=== PATIENT | female | born 1940 | race Caucasian/White ===

== ENCOUNTER 2017-08-28 13:45 | Inpatient (IN) | payer MEDICARE ==
[2017-08-28] MEDS: METOPROLOL TARTRATE 5 MG/5 ML VIAL. IVP (14:15)
[2017-08-28] MEDS ORDERED: fentaNYL PF VIAL 100 MCG/2 ML VIAL IV (14:15)
[2017-08-28 14:31] LABS: ADD MAN DIFF? NO
[2017-08-28 14:35] LABS: BASO % 1 % (0-3); EOS % 1 % (0-3); HEMATOCRIT 41.9 % (36.0-47.0); LYMPH # 1.5 x10^3/uL (1.0-4.8); LYMPH % 27 % (24-48); MEAN CORPUSCULAR HEMOGLOBIN 32 pg (25-35); MEAN CORPUSCULAR HGB CONC 34 g/dL (31-37); MEAN CORPUSCULAR VOLUME 95 fL (79-100); MONO # 0.5 x10^3/uL (0.0-1.1); MONO % 9 % (0-9); NEUT # 3.6 x10^3uL (1.8-7.7); NEUT % 63 % (31-73); PLATELET COUNT 204 x10^3/uL (140-400); RED CELL DISTRIBUTION WIDTH 13.9 % (11.5-14.5); WHITE BLOOD COUNT 5.8 x10^3/uL (4.0-11.0)
[2017-08-28] MEDS: ASPIRIN CHEWABLE 81 MG TABLET. PO (14:44)
[2017-08-28] MEDS: IV NORMAL SALINE 1000ML BAG 1,000 ML IV (14:45)
[2017-08-28 14:48] LABS: ANION GAP 14 (6-14); BLOOD UREA NITROGEN 26 mg/dL (7-20); BUN/CREATININE RATIO 29 (6-20); CALCIUM 10.1 mg/dL (8.5-10.1); CARBON DIOXIDE 23 mmol/L (21-32); CHLORIDE 108 mmol/L (98-107); CREATININE 0.9 mg/dL (0.6-1.0); GFR 60.9; GLUCOSE 90 mg/dL (70-99); POTASSIUM 4.7 mmol/L (3.5-5.1); SODIUM 145 mmol/L (136-145)
[2017-08-28 14:54] LABS: ALBUMIN 3.7 g/dL (3.4-5.0); ALK PHOS 60 U/L (46-116); ALT (SGPT) 17 U/L (14-59); AST (SGOT) 20 U/L (15-37); MAGNESIUM 2.2 mg/dL (1.8-2.4); TOTAL BILIRUBIN 0.4 mg/dL (0.2-1.0); TOTAL PROTEIN 7.4 g/dL (6.4-8.2)
[2017-08-28 14:58] LABS: TROPONINI 0.099 ng/mL (0.000-0.055)
[2017-08-28 15:02] LABS: CKMB INDEX 1.4 % (0-4); CKMB MASS 1.2 ng/mL (0.0-3.6); CREATINE KINASE 84 U/L (26-192)
[2017-08-28 15:02] LABS: NT-PRO BNP 564 pg/mL (0-449)
[2017-08-28 16:27] LABS: THYROID STIM HORMONE (TSH) 2.178 uIU/mL (0.358-3.74)
[2017-08-28] MEDS ORDERED: IV NORMAL SALINE 1000ML BAG 1,000 ML IV (16:49)
[2017-08-28] MEDS ORDERED: ONDANSETRON PF 4 MG/2 ML VIAL. IV (17:00)
[2017-08-28 19:38] LABS: TROPONINI 0.356 ng/mL (0.000-0.055)
[2017-08-28] MEDS: ASPIRIN ENTERIC COATED 81 MG TABLET.DR. PO (21:00)
[2017-08-28] MEDS: MELOXICAM 7.5 MG TABLET PO (21:28)
[2017-08-28] MEDS: ATORVASTATIN CALCIUM 20 MG TABLET PO (21:28)
[2017-08-28] MEDS: METOPROLOL TART IMMED RELEASE 25 MG TABLET. PO (21:28)
[2017-08-28 22:08] LABS: BILIRUBIN,URINE NEGATIVE (NEG); CLARITY,URINE CLEAR; COLOR,URINE YELLOW; GLUCOSE,URINE NEGATIVE (NEG); NITRITE,URINE NEGATIVE (NEG); PH,URINE 7.5; PROTEIN,URINE NEGATIVE (NEG-TRACE); UROBILINOGEN,URINE 0.2 mg/dL (0.2 mg/dL)
[2017-08-28 22:14] LABS: BACTERIA,URINE 0 /HPF (0-FEW); RBC,URINE 0 /HPF (0-2); WBC,URINE OCC /HPF (0-4)
[2017-08-28 22:15] LABS: SQUAMOUS EPITHELIAL CELL,UR FEW /LPF
[2017-08-28 23:30] LABS: TROPONINI 0.482 ng/mL (0.000-0.055)
[2017-08-29 05:07] LABS: ADD MAN DIFF? NO
[2017-08-29 05:17] LABS: BASO % 1 % (0-3); EOS # 0.1 x10^3/uL (0.0-0.7); EOS % 2 % (0-3); HEMATOCRIT 35.6 % (36.0-47.0); HEMOGLOBIN 11.8 g/dL (12.0-15.5); LYMPH # 2.1 x10^3/uL (1.0-4.8); LYMPH % 39 % (24-48); MEAN CORPUSCULAR HEMOGLOBIN 32 pg (25-35); MEAN CORPUSCULAR HGB CONC 33 g/dL (31-37); MEAN CORPUSCULAR VOLUME 96 fL (79-100); MONO # 0.4 x10^3/uL (0.0-1.1); MONO % 8 % (0-9); NEUT # 2.7 x10^3uL (1.8-7.7); NEUT % 51 % (31-73); PLATELET COUNT 163 x10^3/uL (140-400); RED BLOOD COUNT 3.71 x10^6/uL (3.50-5.40); RED CELL DISTRIBUTION WIDTH 13.4 % (11.5-14.5); WHITE BLOOD COUNT 5.4 x10^3/uL (4.0-11.0)
[2017-08-29 05:44] LABS: ANION GAP 9 (6-14); BLOOD UREA NITROGEN 17 mg/dL (7-20); CALCIUM 8.6 mg/dL (8.5-10.1); CARBON DIOXIDE 25 mmol/L (21-32); CHLORIDE 109 mmol/L (98-107); CHOLESTEROL 118 mg/dL (0-200); CREATININE 0.8 mg/dL (0.6-1.0); GFR 69.7; GLUCOSE 87 mg/dL (70-99); HDLC 59 mg/dL (40-60); LDLC 50 mg/dL (0-100); NON-HDL CHOLESTEROL 59 mg/dL (0-129); POTASSIUM 4.1 mmol/L (3.5-5.1); SODIUM 143 mmol/L (136-145); TRIGLYCERIDES 44 mg/dL (0-150); VLDLC 9 mg/dL (0-40)
[2017-08-29] MEDS ORDERED: ASPIRIN ENTERIC COATED 325 MG TABLET.DR. PO (08:00)
[2017-08-29] MEDS: METOPROLOL TART IMMED RELEASE 25 MG TABLET. PO (09:36)
[2017-08-29 11:33] LABS: TROPONINI 0.508 ng/mL (0.000-0.055)
[2017-08-29 13:09] LABS: TROPONINI 0.493 ng/mL (0.000-0.055)
== END 2017-08-29 19:00 | disposition home or self-care (01) | DRG 309 ==
LOC: ER 13:45 → 2 SOUTH 15:40
DX: I48.92 Unspecified atrial flutter (principal); I24.8 Other forms of acute ischemic heart disease; E78.00 Pure hypercholesterolemia, unspecified; I47.1 Supraventricular tachycardia; I48.91 Unspecified atrial fibrillation; E78.5 Hyperlipidemia, unspecified; I10 Essential (primary) hypertension; M19.90 Unspecified osteoarthritis, unspecified site; Z82.49 Family history of ischemic heart disease and other diseases of the circulatory system; Z90.710 Acquired absence of both cervix and uterus; Z88.2 Allergy status to sulfonamides
CPT/HCPCS: 36415; 71045; 80048; 80053; 80061; 81001; 82553; 83735; 83880; 84443; 84484; 85025; 87086; 93005; 93306; J1650; J7030

== ENCOUNTER 2021-08-06 00:49 | Emergency (ER) | payer MEDICARE ==
[~2021-08-06] VITALS: Ht 162.6 cm; Wt 65.9 kg
[~2021-08-06 00:49] MED LIST: ASPI-482 PO; ATOR20TA PO; MELO15TA23 PO; MELO7.5T29 PO; METO25TA4 PO
--- NOTE | 2021-08-06 00:53 | PHYS DOC ---
Past Medical History Past Medical History: A-Fib, Arthritis, High Cholesterol, Hypertension Past Surgical History: Hysterectomy, Other Additional Past Surgical Histo: lumpectomy R breast Smoking Status: Never Smoker Alcohol Use: None Drug Use: None General Adult EDM: Chief Complaint: RAPID HEART RATE HPI: HPI: Patient is a 81 year old female who presents with multiple complaints. She reports that she thinks she might be in atrial fibrillation. She reports feeling like her heart is racing, she reports mild shortness of breath. Symptoms began at home a few hours prior to arrival. She reports that symptoms woke her from sleep. She reports that she and her have both been "sick with cough and fever" for the past 24 hours. No productive cough, no hemoptysis. She denies chest pain. She denies exertional dyspnea, PND orthopnea symptoms. She denies lower extremity pain or swelling. She denies syncope or near syncope. She denies urinary symptoms. She denies abdominal pain, nausea, vomiting, diarrhea. Has a history of what sounds like paroxysmal atrial fibrillation. She reports that she takes diltiazem. She is not taking anticoagulants. She does not routinely see a felt pad cutter and has not done so in several years. She reports that she and her recently traveled to [place] to visit with family. The patient reports being fully vaccinated against COVID-19, including booster, she has had a flu shot as well. Review of Systems: Review of Systems: Constitutional: Fever and chills Eyes: Denies change in visual acuity. Denies vision loss. HENT: Denies nasal congestion or sore throat. [] Respiratory: Mild, dry cough. Mild shortness of breath. No PND, orthopnea or dyspnea on exertion Cardiovascular: Denies chest pain or edema. [] GI: Denies abdominal pain, nausea, vomiting, or diarrhea : Denies urinary symptoms. Musculoskeletal: Denies back pain or joint pain. [] Integument: Denies rash. [] Neurologic: Denies headache, focal weakness or sensory changes. Reports mild dizziness with abrupt standing. Denies vertigo symptoms. Denies fall, head injury, numbness, tingling, motor weakness. Psychiatric: Anxiety as it pertains to current clinical condition. Heart Score: C/O Chest Pain: No Risk Factors: Risk Factors: DM, Current or recent (<one month) smoker, HTN, HLP, family history of CAD, obesity. Risk Scores: Score 0 - 3: 2.5% MACE over next 6 weeks - Discharge Home Score 4 - 6: 20.3% MACE over next 6 weeks - Admit for Clinical Observation Score 7 - 10: 72.7% MACE over next 6 weeks - Early Invasive Strategies Allergies: Allergies: Allergies Coded Allergies Type Severity Reaction Last Updated Verified Sulfa (Sulfonamide Antibiotics) Allergy Mild HENDRICKS 08/28/17 Yes Physical Exam: PE: Constitutional: Well developed, well nourished, no acute distress, non-toxic appearance. Mildly anxious HENT: Normocephalic, atraumatic, oropharynx patent and clear, mucous membranes are moist Eyes: PERRL, EOMI, conjunctiva normal, no discharge. [] Neck: Normal range of motion, no tenderness, supple, no stridor. Trachea mid line. No JVD. Cardiovascular: Heart is regular rate and rhythm, +2 radial and +2 posterior tibial pulses bilaterally. Warm and well perfused. No cyanosis or edema. Lungs & Thorax: Lungs are clear to auscultation bilaterally, no rales, rhonchi or wheezes. Abdomen: Abdomen is soft, nondistended, nontender to palpation, no palpable mass organomegaly, no CVA tenderness, no flank abdominal ecchymoses. Skin: Warm, dry, no erythema, no rash. [] Back: No tenderness, no CVA tenderness. [] Extremities: No tenderness, no cyanosis, no clubbing, ROM intact, no edema. No calf tenderness. Neurologic: Alert and oriented X 3, normal motor function, normal sensory function, no focal deficits noted. Ambulatory with a steady gait. Psychologic: Affect is somewhat bizarre, she is pleasant cooperative EKG: EKG: EKG is interpreted at 0056 Rhythm is sinus tachycardia Rate is 103 bpm [place] is left artifact No STEMI EKG is interpreted at 0216 Rhythm is sinus Rate is 73 bpm No STEMI No acute ischemia Radiology/Procedures: Radiology/Procedures: IMAGING REPORT Signed PATIENT: PHIL RODARTE LACCOUNT: [id number] : 1940 LOCATION: ER AGE: 81 SEX: F EXAM STATUS: REG ER ORD. PHYSICIAN: TIBURCIO BRENNAN DO REASON: cough, fever PROCEDURE: PORTABLE CHEST 1V EXAM: XR CHEST 1V 08/06/2021 1:21 AM CLINICAL INDICATION: Cough, fever COMPARISON: Chest radiograph 08/28/2017 TECHNIQUE: AP upright view of the chest FINDINGS: The heart is normal in size. There are calcified left hilar lymph nodes and a calcified granuloma in the left lung base. The lungs are well- expanded. No consolidation, pleural effusion, or pneumothorax. Probable nipple shadow overlying the right lung base, unchanged. IMPRESSION: No acute cardiopulmonary abnormality. Electronically signed by: Macie Lewis MD (08/06/2021 2:01 AM) [facility] DICTATED and SIGNED BY: MACIE LEWIS MD DATE: 08/06/21 [id number] 0 Course & Med Decision Making: Course & Med Decision Making Pertinent Labs and Imaging studies reviewed. (See chart for details) The patient had one episode of dizziness here in the ER, but she was able to briskly get up from the bed, nearly lie down on the floor, stand up abruptly then lie back on the ED gurney. She had one episode of very brief hypotension that resolved without any intervention. She was given a liter of IV fluids. Heart rate has been in the 60s and 70s. She has evidence of sinus rhythm. No atrial fibrillation noted here in the ED. Very mild tachycardia that she had on arrival resolved rapidly. Serial troponin does not indicate any acute ischemia or myocardial damage. No acute ischemia on EKG. She reports no further dyspnea, never had any chest pain. Her dizziness symptoms resolved completely. She is afebrile here. Emergency department work-up is unremarkable for any acute life-threatening process. I discussed all of the findings, differential diagnosis and plan of care with her. I told her she should follow-up with not only her primary care physician but also with outpatient cardiology services. She has a history of atrial fibrillation, she is taking diltiazem, I told her to continue taking these medications, though she may require outpatient Holter monitoring if she continues to have recurrent symptoms. Strict return precautions are given. She verbalizes understanding. In addition, I told her that since she has had a cough and fever and recently was around multiple family members, it might be smalls for her to self isolate, perhaps retest for Covid in the next 3 to 5 days. She seems disappointed at these instructions, but I told her that it would be best to be safe. She verbalized understanding. Regulo Disclaimer: Regulo Disclaimer: This electronic medical record was generated, in whole or in part, using a voice recognition dictation system. Departure Departure Impression: Primary Impression: Palpitations Additional Impressions: Dizziness History of atrial fibrillation History of fever Disposition: HOME / SELF CARE / HOMELESS Condition: STABLE Referrals: SHA CANCHOLA MD (PCP) SAIDA THOMPSON MD, DONALD J MD PASNOORI,YEN Kelly MD Patient Instructions: Atrial Fibrillation, Dizziness, Palpitations Additional Instructions: Please return to the ER for chest pain, more severe shortness of breath, severe dizziness, passing out, focal weakness, uncontrolled vomiting, dehydration, abdominal pain, coughing up blood or any other concerns. Your rapid Covid test is negative here, but since it so early in onset of your symptoms, you may wish to retest in the next 3 to 5 days, but his Covid infection is still possible. Stay hydrated, drink plenty of fluids. Avoid any new strenuous activity. Please follow-up with your primary care physician and outpatient cardiology ser vices. You may need to wear a shelter monitor to see if you are having intermittent episodes of atrial fibrillation. TIBURCIO BRENNAN DO Aug 06, 2021 00:53
[2021-08-06 01:23] LABS: BASO % 0 % (0-3); EOS # 0.1 x10^3/uL (0.0-0.7); EOS % 1 % (0-3); HEMOGLOBIN 14.6 g/dL (12.0-15.5); LYMPH # 1.4 x10^3/uL (1.0-4.8); LYMPH % 17 % (24-48); MEAN CORPUSCULAR HEMOGLOBIN 31 pg (25-35); MEAN CORPUSCULAR HGB CONC 33 g/dL (31-37); MEAN CORPUSCULAR VOLUME 94 fL (79-100); MONO # 0.5 x10^3/uL (0.0-1.1); MONO % 6 % (0-9); NEUT # 6.4 x10^3/uL (1.8-7.7); NEUT % 76 % (31-73); PLATELET COUNT 211 x10^3/uL (140-400); RED BLOOD COUNT 4.69 x10^6/uL (3.50-5.40); RED CELL DISTRIBUTION WIDTH 15.3 % (11.5-14.5); WHITE BLOOD COUNT 8.5 x10^3/uL (4.0-11.0)
[2021-08-06 01:33] LABS: CALCIUM 9.1 mg/dL (8.5-10.1); GFR 53.3; POTASSIUM 4.1 mmol/L (3.5-5.1)
[2021-08-06 01:39] LABS: INFLUENZA A PATIENT NEGATIVE (NEGATIVE); INFLUENZA B PATIENT NEGATIVE (NEGATIVE)
--- NOTE | 2021-08-06 02:03 | RAD ---
EXAM: XR CHEST 1V 08/06/2021 1:21 AM CLINICAL INDICATION: Cough, fever COMPARISON: Chest radiograph 08/28/2017 TECHNIQUE: AP upright view of the chest FINDINGS: The heart is normal in size. There are calcified left hilar lymph nodes and a calcified gr anuloma in the left lung base. The lungs are well-expanded. No consolidation, pleural effusion, or pn eumothorax. Probable nipple shadow overlying the right lung base, unchanged. IMPRESSION: No acute cardiopulmonary abnormality. Electronically signed by: Macie Lewis MD (08/06/2021 2:01 AM) [facility]
[2021-08-06] MEDS ORDERED: IV NORMAL SALINE 1000ML BAG 1,000 ML IV ONE (02:30)
[2021-08-06 03:40] LABS: BILIRUBIN,URINE NEGATIVE (NEG); CLARITY,URINE CLEAR; COLOR,URINE YELLOW; NITRITE,URINE NEGATIVE (NEG); PROTEIN,URINE NEGATIVE (NEG-TRACE); UROBILINOGEN,URINE 0.2 mg/dL (0.2 mg/dL)
[2021-08-06 03:41] LABS: BACTERIA,URINE 0 /HPF (0-FEW); RBC,URINE 0 /HPF (0-2); WBC,URINE OCC /HPF (0-4)
[2021-08-06] MEDS ORDERED: MORPHINE SULFATE 4 MG/ML INJ. IVP ONE (05:15)
[2021-08-06 05:17] VITALS: BP 128/62
--- NOTE | 2021-08-06 18:53 | EKG ---
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
--- NOTE | 2021-08-06 18:56 | EKG ---
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
== END 2021-08-06 05:45 | disposition home or self-care (01) ==
LOC: ER 00:49
DX: R00.2 Palpitations (principal); R42 Dizziness and giddiness; R50.9 Fever, unspecified; I48.91 Unspecified atrial fibrillation; E78.00 Pure hypercholesterolemia, unspecified; I10 Essential (primary) hypertension; Z88.2 Allergy status to sulfonamides
CPT/HCPCS: 36415; 71045; 80048; 81001; 83605; 83735; 83880; 84443; 84484; 85025; 85379; 87040; 87428; 93005; 96360; 96361; 99285; J7030

== ENCOUNTER → 2021-09-08 | Outpatient (CLI) | payer MEDICARE ==
--- NOTE | 2021-09-08 13:48 | CARD ---
MR#: [id number] Date of Study: 09/08/2021 Ordering Physician: YEN OROZCO, Referring Physician: YEN OROZCO Tech: Fallon Moe [facility] APPROVED REPORT EXAM: Two-dimensional and M-mode echocardiogram with Doppler and color Doppler. Other Information Quality : GoodHR: 60bpm Rhythm : NSR INDICATION Atrial Fibrillation 2D DIMENSIONS RVDd3.0 (2.9-3.5cm)Left Atrium(2D)3.1 (1.6-4.0cm) IVSd0.9 (0.7-1.1cm)Aortic Root(2D)3.1 (2.0-3.7cm) LVDd4.5 (3.9-5.9cm)LVOT Diameter2.2 (1.8-2.4cm) PWd0.9 (0.7-1.1cm)LVDs2.4 (2.5-4.0cm) FS (%) 46.4 %SV73.7 ml LVEF(%)77.9 (>50%) Aortic Valve AoV Peak Rj.110.9cm/sAoV VTI27.6cm AO Peak GR.4.9mmHgLVOT Peak Rj.82.9cm/s AO Mean GR.2mmHgAVA (VMAX)2.81cm2 Mitral Valve MV E Nefcsylr39.8cm/sMV DECEL ABFV336hr MV A Xapnlsrh91.8cm/sE/A Ratio0.7 Pulmonary Valve PV Peak Xprrqsck60.4cm/s Tricuspid Valve TR P. Scrrrcwr639sb/sTR Peak Gr.22mmHg LEFT VENTRICLE The left ventricle is normal size. There is normal left ventricular wall thickness. The left ventricu lar systolic function is normal and the ejection fraction is within normal range. Estimated ejection fraction 60%. There is normal LV segmental wall motion. Tissue Doppler imaging reveals mild left vent ricular diastolic dysfunction. RIGHT VENTRICLE The right ventricle is normal size. There is normal right ventricular wall thickness. The right ventr icular systolic function is normal. ATRIA The left atrium size is normal. The right atrium size is normal. The interatrial septum is intact wit h no evidence for an atrial septal defect or patent foramen ovale as noted on 2-D or Doppler imaging. AORTIC VALVE The aortic valve is normal in structure and function. Doppler and Color Flow revealed no significant aortic regurgitation. There is no significant aortic valvular stenosis. MITRAL VALVE The mitral valve is normal in structure and function. There is no evidence of mitral valve prolapse. There is no mitral valve stenosis. Doppler and Color-flow revealed mild mitral regurgitation. TRICUSPID VALVE The tricuspid valve is normal in structure and function. Doppler and Color Flow revealed trace tricus pid regurgitation. Estimated PAP 25 mmHg. There is no tricuspid valve stenosis. PULMONIC VALVE Doppler and Color Flow revealed trace pulmonic valvular regurgitation. There is no pulmonic valvular stenosis. GREAT VESSELS The aortic root is normal in size. The ascending aorta is normal in size. The IVC is normal in size a nd collapses >50% with inspiration. PERICARDIAL EFFUSION There is no evidence of significant pericardial effusion. Critical Notification Critical Value: No <Conclusion> The left ventricular systolic function is normal and the ejection fraction is within normal range. E stimated ejection fraction 60%. There is normal LV segmental wall motion. Signed by : Justus Escamilla, Electronically Approved : 09/08/2021 13:48:06
== END ==
LOC: ECHO 08:41
PROVIDERS: ATTEND Internal Medicine Cardiovascular Disease
DX: I34.0 Nonrheumatic mitral (valve) insufficiency (principal); I48.92 Unspecified atrial flutter; I48.0 Paroxysmal atrial fibrillation
CPT/HCPCS: 93306; C8929